=== PATIENT | female | born 1960 | race Hispanic/Latino ===

== ENCOUNTER → 2018-07-22 | Outpatient (CLI) | payer OTHER, MEDICARE | END | disposition home or self-care (01) | LOC: SHCH 15:01 | PROVIDERS: ATTEND Internal Medicine Cardiovascular Disease | DX: I10 Essential (primary) hypertension (principal); R06.00 Dyspnea, unspecified | CPT/HCPCS: 93306 ==

== ENCOUNTER → 2018-07-24 | Outpatient (CLI) | payer OTHER, MEDICARE ==
[~2018-07-24] MED LIST: REGADENOSON 0.4 MG/5 ML PF SYG IVP SCH
== END | disposition home or self-care (01) ==
LOC: EDUNIT# 08:50 → SHCH 09:01
PROVIDERS: ATTEND Internal Medicine Cardiovascular Disease
DX: I25.9 Chronic ischemic heart disease, unspecified (principal)
CPT/HCPCS: 78452; 93017; 96374; A9500 ×2; J2785

== ENCOUNTER 2020-11-12 10:16 | Inpatient (IN) | payer OTHER, MEDICARE ==
[~2020-11-12] VITALS: Ht 147.3 cm; Wt 99.0 kg
[2020-11-12] MEDS ORDERED: ACETAMINOPHEN 325 MG TAB ONE (10:22)
[2020-11-12 10:46] LABS: BASOPHILS % (AUTO) 0.2 % (0.0-5.0); EOSINOPHILS % (AUTO) 0.1 % (0.0-8.0); HEMATOCRIT 35.3 % (36-48); LYMPHOCYTES % (AUTO) 8.9 % (21.0-51.0); MEAN CORPUSCULAR HGB CONC 33.1 g/dL (32.0-36.0); MEAN CORPUSCULAR VOLUME 90.5 fL (79-99); MONOCYTES % (AUTO) 3.3 % (3.0-13.0); NEUTROPHILS % (AUTO) 86.9 % (40.0-77.0); PLATELET COUNT (AUTO) 112 K/uL (130-400); RED CELL DISTRIBUTION WIDTH 13.8 % (11.0-15.5); WHITE BLOOD COUNT (AUTO) 12.5 K/uL (4.8-10.8)
[2020-11-12 10:49] LABS: ABG BASE EXCESS -3.2 mmol/L (-2.0-3.0); ABG HCO3 20.2 mmol/L (21.0-28.0); ABG OXYGEN SATURATION 92.8 % (95.0-99.0); ABG PCO2 32 mmHg (32-45)
[2020-11-12 11:12] LABS: CREATININE 1.6 mg/dL (0.5-1.5); POTASSIUM 4.1 mmol/L (3.5-5.1)
[2020-11-12 11:15] LABS: APPEARANCE,URINE CLEAR (CLEAR); BILIRUBIN,URINE NEGATIVE (NEGATIVE); COLOR,URINE YELLOW (YELLOW); GLUCOSE, URINE (UA) 500 mg/dL (NEGATIVE); KETONES,URINE 15 mg/dL (NEGATIVE); LEUKOCYTE ESTERASE ,URINE NEGATIVE (NEGATIVE); NITRATE,URINE NEGATIVE (NEGATIVE); OCCULT BLOOD,URINE SMALL (NEGATIVE); PROTEIN,URINE 100 mg/dL (NEGATIVE); UROBILINOGEN,URINE 0.2 mg/dL (0.2-1.0)
[2020-11-12 11:21] LABS: ALBUMIN 2.6 g/dL (3.5-5.0); BILIRUBIN,TOTAL 0.4 mg/dL (0.2-1.0); TOTAL PROTEIN, SERUM 6.8 g/dL (6.0-8.3)
[2020-11-12] MEDS ORDERED: DEXAMETHASONE SOD PHOSPHATE 4 MG/ML 5ML VIAL ONE (11:37)
[2020-11-12] MEDS ORDERED: CEFTRIAXONE 1G VIAL ONE (11:38)
[2020-11-12] MEDS ORDERED: PHARMACY COMMUNICATION MISC ONE (12:00)
[2020-11-12] MEDS ORDERED: ALBUTEROL INHALER 90MCG/INH IH ONE (12:00)
[2020-11-12] MEDS: CEFTRIAXONE 1G VIAL IVP SCH (12:00)
[2020-11-12] MEDS ORDERED: AZITHROMYCIN 500MG+NS 250ML 250 ML IV ONE (12:01)
[2020-11-12] MEDS ORDERED: 0.9%NACL 1000ML 1,000 ML IV ONE ×3 (12:02→14:30)
[2020-11-12 12:08] LABS: BACTERIA,URINE Few /HPF (None Seen); RBC,URINE 0-1 /HPF (0-1); WBC,URINE 0-1 /HPF (0-1)
[2020-11-12 12:51] LABS: CRP QUANTITATIVE 303.9 mg/L (0.00-9.0)
[2020-11-12 13:03] LABS: HEMOGLOBIN A1C 8.4 % (4.0-6.0)
[2020-11-12] MEDS ORDERED: ONDANSETRON 4MG INJ ONE (14:24)
[2020-11-12] MEDS ORDERED: NOREPINEPHRIN 4MG/NS 250ML 250 ML IV ONE (14:55)
[2020-11-12] MEDS ORDERED: INSULIN HUMULIN R 100 UNIT/ML 3ML SQ SCH (16:30)
[2020-11-12] MEDS ORDERED: ONDANSETRON 4MG INJ IVP PRN (18:00)
[2020-11-12] MEDS ORDERED: ACETAMINOPHEN 325 MG TAB PO PRN (18:00)
[2020-11-12] MEDS: SOLU-MEDROL 125MG VIAL IVP SCH (18:00)
[2020-11-12] MEDS ORDERED: 0.9%NACL 1000ML 1,000 ML IV SCH (18:00)
[2020-11-12] MEDS ORDERED: 0.9% NACL 500ML IV.SOLN 500 ML IV SCH (18:00)
[2020-11-12] MEDS ORDERED: DOXYCYCLINE HYCLATE 100 MG TABLET PO ONE (20:48)
[2020-11-12] MEDS ORDERED: INSULIN HUMULIN R 100 UNIT/ML 3ML ONE (20:49)
[2020-11-12] MEDS ORDERED: INSULIN GLARGINE 100 UNITS/ML 10 ML VIAL SQ SCH (21:00)
[2020-11-12] MEDS: DOXYCYCLINE HYCLATE 100 MG TABLET PO SCH (21:00)
[2020-11-13] MEDS: SOLU-MEDROL 125MG VIAL IVP SCH ×3 (02:00→18:00)
[2020-11-13] MEDS ORDERED: SOLU-MEDROL 125MG VIAL ONE ×2 (02:09→08:05)
[2020-11-13 06:00] LABS: BASOPHILS % (AUTO) 0.1 % (0.0-5.0); HEMATOCRIT 39.7 % (36-48); LYMPHOCYTES % (AUTO) 4.9 % (21.0-51.0); MEAN CORPUSCULAR HEMOGLOBIN 29.3 pg (27.0-33.0); MEAN CORPUSCULAR HGB CONC 31.5 g/dL (32.0-36.0); MEAN CORPUSCULAR VOLUME 93.2 fL (79-99); MONOCYTES % (AUTO) 2.1 % (3.0-13.0); NEUTROPHILS % (AUTO) 92.3 % (40.0-77.0); PLATELET COUNT (AUTO) 161 K/uL (130-400); RED BLOOD CELL COUNT(AUTO) 4.26 MIL/uL (4.00-5.50); RED CELL DISTRIBUTION WIDTH 14.1 % (11.0-15.5); WHITE BLOOD COUNT (AUTO) 14.7 K/uL (4.8-10.8)
[2020-11-13 06:59] LABS: ALBUMIN 2.7 g/dL (3.5-5.0); BILIRUBIN,TOTAL 0.4 mg/dL (0.2-1.0); CREATININE 1.6 mg/dL (0.5-1.5); POTASSIUM 5.5 mmol/L (3.5-5.1); TOTAL PROTEIN, SERUM 7.5 g/dL (6.0-8.3)
[2020-11-13 07:54] LABS: CRP QUANTITATIVE 273.7 mg/L (0.00-9.0)
[2020-11-13] MEDS ORDERED: DOXYCYCLINE HYCLATE 100 MG TABLET PO ONE ×2 (08:04→21:05)
[2020-11-13] MEDS ORDERED: ASCORBIC ACID 500 MG TAB ONE (08:04)
[2020-11-13] MEDS ORDERED: FAMOTIDINE 20MG TAB ONE (08:05)
[2020-11-13] MEDS ORDERED: ENOXAPARIN SODIUM 30 MG/0.3 ML SQ ONE (08:05)
[2020-11-13] MEDS ORDERED: CEFTRIAXONE 1G VIAL ONE (08:05)
[2020-11-13] MEDS ORDERED: INSULIN HUMULIN R 100 UNIT/ML 3ML ONE ×3 (08:06→21:06)
[2020-11-13] MEDS: HEPARIN 5,000 UNIT VIAL SQ SCH ×2 (08:45→20:45)
[2020-11-13] MEDS: DOXYCYCLINE HYCLATE 100 MG TABLET PO SCH ×2 (09:00→21:00)
[2020-11-13] MEDS ORDERED: ENOXAPARIN SODIUM 30 MG/0.3 ML SQ SCH (09:00)
[2020-11-13] MEDS: FAMOTIDINE 20MG TAB PO SCH (09:00)
[2020-11-13] MEDS: ASCORBIC ACID 500 MG TAB PO SCH (09:00)
[2020-11-13] MEDS: CEFTRIAXONE 1G VIAL IVP SCH (12:00)
[2020-11-13] MEDS ORDERED: DOCUSATE SODIUM 100 MG CAP PO SCH ×2 (14:15→14:20)
[2020-11-13] MEDS ORDERED: 0.9%NACL 1000ML 1,000 ML IV ONE (14:39)
[2020-11-13] MEDS ORDERED: DOCUSATE SODIUM 100 MG CAP PO ONE (16:36)
[2020-11-13] MEDS ORDERED: POTASSIUM CHLORIDE 10MEQ SR TAB PO SCH (17:00)
[2020-11-13] MEDS ORDERED: INSULIN GLARGINE 100 UNITS/ML 10 ML VIAL SQ SCH (21:00)
[2020-11-13] MEDS: SIMVASTATIN 20 MG TABLET PO SCH (21:00)
[2020-11-14] MEDS: SOLU-MEDROL 125MG VIAL IVP SCH ×3 (02:00→18:00)
[2020-11-14] MEDS ORDERED: SOLU-MEDROL 40MG VIAL ONE (02:02)
[2020-11-14] MEDS ORDERED: ACETAMINOPHEN 325 MG TAB ONE (02:02)
[2020-11-14 04:33] LABS: HEMATOCRIT 35.2 % (36-48); MEAN CORPUSCULAR HEMOGLOBIN 30.2 pg (27.0-33.0); MEAN CORPUSCULAR HGB CONC 32.4 g/dL (32.0-36.0); MEAN CORPUSCULAR VOLUME 93.4 fL (79-99); PLATELET COUNT (AUTO) 165 K/uL (130-400); RED BLOOD CELL COUNT(AUTO) 3.77 MIL/uL (4.00-5.50); RED CELL DISTRIBUTION WIDTH 13.8 % (11.0-15.5); WHITE BLOOD COUNT (AUTO) 13.4 K/uL (4.8-10.8)
[2020-11-14 04:50] LABS: BAND NEUTROPHILS % (MANUAL) 6 % (0-2); LYMPHOCYTES % (MANUAL) 12 % (22-44); MAN.DIFF COMMENT-IMPRESSION MANUAL DIFFERENTIAL; MONOCYTES % (MANUAL) 4 % (2-9); PLATELET MORPHOLOGY COMMENT ADEQUATE; SEGMENTED NEUTROPHILS % 78 % (40-70)
[2020-11-14 04:59] LABS: CREATININE 1.4 mg/dL (0.5-1.5); CRP QUANTITATIVE 117.6 mg/L (0.00-9.0); PHOSPHORUS 2.1 mg/dL (2.5-4.9); POTASSIUM 4.5 mmol/L (3.5-5.1)
[2020-11-14] MEDS: INSULIN HUMULIN R 100 UNIT/ML 3ML SQ SCH ×6 (07:30→23:45)
[2020-11-14] MEDS ORDERED: INSULIN HUMULIN R 100 UNIT/ML 3ML SQ SCH ×2 (07:30→11:30)
[2020-11-14] MEDS: PANTOPRAZOLE 40 MG TAB DR PO SCH (07:30)
[2020-11-14] MEDS ORDERED: ASCORBIC ACID 500 MG TAB ONE (08:31)
[2020-11-14] MEDS ORDERED: DOXYCYCLINE HYCLATE 100 MG TABLET PO ONE (08:31)
[2020-11-14] MEDS ORDERED: SOLU-MEDROL 125MG VIAL ONE ×2 (08:32→17:21)
[2020-11-14] MEDS ORDERED: FAMOTIDINE 20MG TAB ONE (08:32)
[2020-11-14] MEDS ORDERED: FUROSEMIDE 40 MG TABLET ONE (08:32)
[2020-11-14] MEDS ORDERED: HEPARIN 5,000 UNIT VIAL ONE (08:32)
[2020-11-14] MEDS ORDERED: METOPROLOL TARTRATE 25 MG TAB ONE (08:33)
[2020-11-14] MEDS ORDERED: PANTOPRAZOLE 40 MG TAB DR ONE (08:33)
[2020-11-14] MEDS ORDERED: PREDNISONE 10 MG TABLET ONE (08:33)
[2020-11-14] MEDS ORDERED: INSULIN HUMULIN R 100 UNIT/ML 3ML ONE ×3 (08:34→17:22)
[2020-11-14] MEDS: HEPARIN 5,000 UNIT VIAL SQ SCH ×2 (08:45→23:42)
[2020-11-14] MEDS: ASCORBIC ACID 500 MG TAB PO SCH (09:00)
[2020-11-14] MEDS: FUROSEMIDE 40 MG TABLET PO SCH (09:00)
[2020-11-14] MEDS: FAMOTIDINE 20MG TAB PO SCH (09:00)
[2020-11-14] MEDS: PREDNISONE 10 MG TABLET PO SCH (09:00)
[2020-11-14] MEDS: DOXYCYCLINE HYCLATE 100 MG TABLET PO SCH ×2 (09:00→23:38)
[2020-11-14] MEDS: METOPROLOL TARTRATE 25 MG TAB PO SCH (09:00)
[2020-11-14] MEDS: INSULIN GLARGINE 100 UNITS/ML 10 ML VIAL SQ SCH ×2 (09:07→23:43)
[2020-11-14] MEDS ORDERED: CEFTRIAXONE 1G VIAL ONE (11:01)
[2020-11-14] MEDS: CEFTRIAXONE 1G VIAL IVP SCH (12:00)
[2020-11-14] MEDS ORDERED: FURO40TA5 PO (12:27)
[2020-11-14] MEDS ORDERED: HUMULOG SQ (12:28)
[2020-11-14] MEDS ORDERED: SIMV-46 PO (12:28)
[2020-11-14] MEDS ORDERED: METO-408 PO (12:28)
[2020-11-14] MEDS ORDERED: INSU3INS3 SQ ×2 (12:28)
[2020-11-14] MEDS ORDERED: PRED10TA3 PO (12:28)
[2020-11-14] MEDS ORDERED: POTA-10 PO (12:28)
[2020-11-14] MEDS ORDERED: OMEP40CA21 PO (12:41)
[2020-11-14] MEDS ORDERED: ONDA4TAB10 PO (12:41)
[2020-11-14] MEDS ORDERED: ASCO100031 PO (12:41)
[2020-11-14] MEDS ORDERED: MELA10TA2 PO (12:41)
[2020-11-14] MEDS ORDERED: TYL3B PO (12:41)
[2020-11-14] MEDS ORDERED: ZINC50TA64 PO (12:41)
[2020-11-14] MEDS ORDERED: Quercetin PO (12:41)
[2020-11-14] MEDS ORDERED: CHOL500050 PO (12:41)
[2020-11-14 20:00] VITALS: BP 161/91
[2020-11-14 23:32] VITALS: BP 146/84
[2020-11-14] MEDS: SIMVASTATIN 20 MG TABLET PO SCH (23:40)
[2020-11-15] MEDS: SOLU-MEDROL 125MG VIAL IVP SCH ×3 (03:36→18:08)
[2020-11-15 03:52] VITALS: BP 168/95
[2020-11-15 06:15] LABS: BASOPHILS % (AUTO) 0.2 % (0.0-5.0); EOSINOPHILS % (AUTO) 1.8 % (0.0-8.0); HEMATOCRIT 35.8 % (36-48); LYMPHOCYTES % (AUTO) 4.6 % (21.0-51.0); MEAN CORPUSCULAR HEMOGLOBIN 29.7 pg (27.0-33.0); MEAN CORPUSCULAR HGB CONC 32.1 g/dL (32.0-36.0); MEAN CORPUSCULAR VOLUME 92.5 fL (79-99); MONOCYTES % (AUTO) 4.3 % (3.0-13.0); NEUTROPHILS % (AUTO) 88.2 % (40.0-77.0); PLATELET COUNT (AUTO) 175 K/uL (130-400); RED BLOOD CELL COUNT(AUTO) 3.87 MIL/uL (4.00-5.50); RED CELL DISTRIBUTION WIDTH 13.3 % (11.0-15.5); WHITE BLOOD COUNT (AUTO) 11.3 K/uL (4.8-10.8)
[2020-11-15 06:23] LABS: ALBUMIN 2.7 g/dL (3.5-5.0); BILIRUBIN,TOTAL 0.3 mg/dL (0.2-1.0); CREATININE 1.3 mg/dL (0.5-1.5); CRP QUANTITATIVE 54.8 mg/L (0.00-9.0); POTASSIUM 4.2 mmol/L (3.5-5.1); TOTAL PROTEIN, SERUM 6.5 g/dL (6.0-8.3)
[2020-11-15] MEDS: INSULIN HUMULIN R 100 UNIT/ML 3ML SQ SCH ×6 (06:31→22:14)
[2020-11-15] MEDS ORDERED: INSULIN GLARGINE 100 UNITS/ML 10 ML VIAL SQ SCH (07:30)
[2020-11-15 08:00] VITALS: BP 150/91
[2020-11-15] MEDS: ASCORBIC ACID 500 MG TAB PO SCH (08:32)
[2020-11-15] MEDS: FAMOTIDINE 20MG TAB PO SCH (08:32)
[2020-11-15] MEDS: FUROSEMIDE 40 MG TABLET PO SCH (08:32)
[2020-11-15] MEDS: PANTOPRAZOLE 40 MG TAB DR PO SCH (08:32)
[2020-11-15] MEDS: DOXYCYCLINE HYCLATE 100 MG TABLET PO SCH ×2 (08:32→21:56)
[2020-11-15] MEDS: METOPROLOL TARTRATE 25 MG TAB PO SCH (08:32)
[2020-11-15] MEDS: PREDNISONE 10 MG TABLET PO SCH (08:34)
[2020-11-15] MEDS: HEPARIN 5,000 UNIT VIAL SQ SCH ×2 (08:38→22:06)
[2020-11-15 12:00] VITALS: BP 144/84
[2020-11-15] MEDS ORDERED: INSULIN HUMULIN R 100 UNIT/ML 3ML SQ SCH ×3 (12:15→17:15)
[2020-11-15] MEDS: CEFTRIAXONE 1G VIAL IVP SCH (12:19)
[2020-11-15 16:00] VITALS: BP 158/91
[2020-11-15] MEDS ORDERED: GUAIFENESIN-DM 200/20 MG 10 ML PO PRN (17:15)
[2020-11-15 20:19] VITALS: BP 156/84
[2020-11-15] MEDS: SIMVASTATIN 20 MG TABLET PO SCH (21:56)
[2020-11-16 00:23] VITALS: BP 127/76
[2020-11-16] MEDS: SOLU-MEDROL 125MG VIAL IVP SCH ×2 (02:01→10:05)
[2020-11-16 04:28] VITALS: BP 124/80
[2020-11-16 05:32] LABS: BASOPHILS % (AUTO) 0.3 % (0.0-5.0); HEMATOCRIT 37.2 % (36-48); LYMPHOCYTES % (AUTO) 4.8 % (21.0-51.0); MEAN CORPUSCULAR HEMOGLOBIN 30.2 pg (27.0-33.0); MEAN CORPUSCULAR HGB CONC 32.5 g/dL (32.0-36.0); MEAN CORPUSCULAR VOLUME 92.8 fL (79-99); MONOCYTES % (AUTO) 8.6 % (3.0-13.0); NEUTROPHILS % (AUTO) 83.3 % (40.0-77.0); PLATELET COUNT (AUTO) 182 K/uL (130-400); RED BLOOD CELL COUNT(AUTO) 4.01 MIL/uL (4.00-5.50); RED CELL DISTRIBUTION WIDTH 12.9 % (11.0-15.5); WHITE BLOOD COUNT (AUTO) 9.5 K/uL (4.8-10.8)
[2020-11-16] MEDS: PANTOPRAZOLE 40 MG TAB DR PO SCH (06:33)
[2020-11-16] MEDS: INSULIN HUMULIN R 100 UNIT/ML 3ML SQ SCH ×5 (06:37→12:09)
[2020-11-16] MEDS ORDERED: INSULIN GLARGINE 100 UNITS/ML 10 ML VIAL SQ SCH (07:30)
[2020-11-16] MEDS: ASCORBIC ACID 500 MG TAB PO SCH (08:04)
[2020-11-16] MEDS: METOPROLOL TARTRATE 25 MG TAB PO SCH (08:04)
[2020-11-16] MEDS: FAMOTIDINE 20MG TAB PO SCH (08:04)
[2020-11-16] MEDS: DOXYCYCLINE HYCLATE 100 MG TABLET PO SCH (08:05)
[2020-11-16] MEDS: FUROSEMIDE 40 MG TABLET PO SCH (08:05)
[2020-11-16] MEDS: HEPARIN 5,000 UNIT VIAL SQ SCH (08:09)
[2020-11-16 08:15] VITALS: BP 145/85
[2020-11-16] MEDS ORDERED: DOCUSATE SODIUM 100 MG CAP PO SCH (09:30)
[2020-11-16] MEDS: CEFTRIAXONE 1G VIAL IVP SCH (12:06)
== END 2020-11-16 14:20 | disposition home or self-care (01) | DRG 871 ==
LOC: EDH 10:16 → EDHIP 11:59 → 4BH 11-14 20:12
PROVIDERS: ADMIT Internal Medicine; ATTEND Internal Medicine
DX: A41.9 Sepsis, unspecified organism (principal); U07.1 COVID-19; R65.21 Severe sepsis with septic shock; J96.01 Acute respiratory failure with hypoxia; J12.82 Pneumonia due to coronavirus disease 2019; E87.1 Hypo-osmolality and hyponatremia; N17.9 Acute kidney failure, unspecified; T86.19 Other complication of kidney transplant; Z68.42 Body mass index [BMI] 45.0-49.9, adult; D84.821 Immunodeficiency due to drugs; E11.65 Type 2 diabetes mellitus with hyperglycemia; E11.22 Type 2 diabetes mellitus with diabetic chronic kidney disease; I12.9 Hypertensive chronic kidney disease with stage 1 through stage 4 chronic kidney disease, or unspecified chronic kidney disease; M19.90 Unspecified osteoarthritis, unspecified site; K59.00 Constipation, unspecified; N18.30 Chronic kidney disease, stage 3 unspecified; E11.42 Type 2 diabetes mellitus with diabetic polyneuropathy; E11.319 Type 2 diabetes mellitus with unspecified diabetic retinopathy without macular edema; E78.5 Hyperlipidemia, unspecified; G47.33 Obstructive sleep apnea (adult) (pediatric); E66.01 Morbid (severe) obesity due to excess calories; D64.9 Anemia, unspecified; E87.5 Hyperkalemia; T38.0X5A Adverse effect of glucocorticoids and synthetic analogues, initial encounter; Y83.0 Surgical operation with transplant of whole organ as the cause of abnormal reaction of the patient, or of later complication, without mention of misadventure at the time of the procedure; K64.9 Unspecified hemorrhoids; Z96.653 Presence of artificial knee joint, bilateral; R74.8 Abnormal levels of other serum enzymes; Z90.5 Acquired absence of kidney; Z79.52 Long term (current) use of systemic steroids; Z79.4 Long term (current) use of insulin; Y92.89 Other specified places as the place of occurrence of the external cause
CPT/HCPCS: 36415; 36600; 71045; 71250; 80048; 80053; 80197; 81001; 82550; 82570; 82728; 82803; 82948; 83036; 83605; 83615; 84100; 84145; 84484; 85025; 85378; 86140; 87040; 87426; 93005; G0378; J0456; J0696; J1100; J1644; J1650; J1815; J2405; J2920; J2930; J3490; J7030; J7512

== ENCOUNTER → 2023-10-11 | Outpatient (CLI) | payer OTHER, MEDICARE ==
[~2023-10-11] MED LIST changes: +ASCO100031 PO; +CHOL500050 PO; +FURO40TA5 PO; +HUMULOG SQ; +INSU3INS3 SQ; +MELA10TA2 PO; +METO-408 PO; +OMEP40CA21 PO; +ONDA4TAB10 PO; +POTA-200 PO; +PRED10TA3 PO; +Quercetin PO; -REGADENOSON 0.4 MG/5 ML PF SYG IVP SCH; +SIMV-46 PO; +TYL3B PO; +ZINC50TA64 PO
== END | disposition home or self-care (01) ==
LOC: SHCH 13:48
PROVIDERS: ATTEND Internal Medicine Cardiovascular Disease
DX: R06.00 Dyspnea, unspecified (principal)
CPT/HCPCS: 93306

== ENCOUNTER → 2024-01-21 | Outpatient (CLI) | payer OTHER | END | disposition home or self-care (01) | LOC: RAH 13:36 | PROVIDERS: ATTEND Internal Medicine Cardiovascular Disease | DX: Z13.6 Encounter for screening for cardiovascular disorders (principal) | CPT/HCPCS: 75571 ==

== ENCOUNTER → 2024-02-23 | Outpatient (CLI) | payer OTHER, MEDICARE ==
[2024-02-23] MEDS: REGADENOSON 0.4 MG/5 ML PF SYG IVP ONE (14:09)
== END | disposition home or self-care (01) ==
LOC: SHCH 08:43
PROVIDERS: ATTEND Internal Medicine Cardiovascular Disease
DX: I25.119 Atherosclerotic heart disease of native coronary artery with unspecified angina pectoris (principal); R06.00 Dyspnea, unspecified
CPT/HCPCS: 78452; 96374; 93017; J2785; A9500 ×2